=== PATIENT | female | born 1970 | race Caucasian/White ===

== ENCOUNTER → 2021-07-22 | Outpatient (CLI) | payer OTHER | LOC: LAB 15:39 | DX: Z00.00 Encounter for general adult medical examination without abnormal findings (principal) | CPT/HCPCS: 82565; 84520 ==

== ENCOUNTER 2021-09-08 14:10 | Emergency (ER) | payer OTHER | END 2021-09-08 14:38 | disposition home or self-care (01) | LOC: ER1 14:10 | DX: Z20.822 Contact with and (suspected) exposure to COVID-19 (principal) | CPT/HCPCS: 99283; U0002 ==

== ENCOUNTER → 2021-09-10 | Outpatient (CLI) | payer OTHER | LOC: MRI 07-25 09:00 → CATH 08:14 → MRI 08:14 | DX: R56.9 Unspecified convulsions (principal); R55 Syncope and collapse; R29.818 Other symptoms and signs involving the nervous system | CPT/HCPCS: 70553; A9577 ==